=== PATIENT | male | born 1965 | race Caucasian/White ===

== ENCOUNTER → 2021-07-11 11:48 | Outpatient (BNVA) | payer MEDICAID, SELFPAY | PROVIDERS: Family Provider Nurse Practitioner Family; PCP Nurse Practitioner Family; Visit Provider Nurse Practitioner Family | DX: Z12.5 Encounter for screening for malignant neoplasm of prostate (principal); E55.9 Vitamin D deficiency, unspecified; E11.9 Type 2 diabetes mellitus without complications; Z13.6 Encounter for screening for cardiovascular disorders; R53.83 Other fatigue | CPT/HCPCS: 80053; 80061; 81003; 82306; 83036; 84443; 85025; G0103 ==

== ENCOUNTER → 2021-09-06 10:08 | Outpatient (BNVA) | payer MEDICAID, SELFPAY | PROVIDERS: Family Provider Nurse Practitioner Family; PCP Nurse Practitioner Family; Visit Provider Nurse Practitioner Family | DX: Z20.822 Contact with and (suspected) exposure to COVID-19 (principal) | CPT/HCPCS: 87635 ==

== ENCOUNTER → 2021-12-05 09:19 | Outpatient (BNVA) | payer MEDICAID, SELFPAY | PROVIDERS: Family Provider Nurse Practitioner Family; PCP Nurse Practitioner Family; Visit Provider Nurse Practitioner Family | DX: Z12.5 Encounter for screening for malignant neoplasm of prostate (principal); E11.69 Type 2 diabetes mellitus with other specified complication; E78.5 Hyperlipidemia, unspecified | CPT/HCPCS: 80053; 80061; 83036; 84443; 85025; G0103 ==

== ENCOUNTER → 2022-02-19 12:52 | Outpatient (BNVA) | payer MEDICAID, SELFPAY | PROVIDERS: Family Provider Nurse Practitioner Family; PCP Nurse Practitioner Family; Visit Provider Nurse Practitioner Family | DX: G89.29 Other chronic pain (principal); M54.2 Cervicalgia; M19.011 Primary osteoarthritis, right shoulder; M19.012 Primary osteoarthritis, left shoulder | CPT/HCPCS: 72040; 73030; 80053; 83036 ==

== ENCOUNTER 2022-04-28 12:06 | Emergency (ER) | payer MEDICAID, SELFPAY ==
[2022-04-28 12:24] VITALS: BP 109/82; PULSE 102; RESP 18; TEMP 36.2; O2SAT 97
[2022-04-28 13:41] LABS: Basophils % 0.4 %; Eosinophils % 0.1 %; Hematocrit 52.1 % (42.0-52.0); Hemoglobin 17.8 g/dL (11.7-16.6); Lymphocytes # 1.2 10^3/uL (0.8-4.8); Lymphocytes % 15.5 %; Mean Corpuscular HGB Conc 34.2 g/dL (30.0-36.0); Mean Corpuscular Hemoglobin 30.3 pg (28.0-34.0); Mean Corpuscular Volume 88.8 fl (80-94); Mean Platelet Volume 10.3 fL (7.4-10.4); Monocytes # 0.4 10^3/uL (0.2-0.9); Monocytes % 5.4 %; Neutrophils # 6.12 10^3/uL (1.8-7.7); Neutrophils % 78.2 %; Nucleated Red Blood Cells % 0 %; Platelet Count 192 10^3/cmm (130-400); Red Blood Count 5.87 10^6/uL (4.1-5.3); Red Cell Distribution Width 11.6 % (12.1-15.1); White Blood Count 7.8 10^3/uL (4.0-10.0)
--- NOTE | 2022-04-28 13:57 | ECG_ITS ---
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 Measurements Intervals [place] Rate: 88 P: 62 [place]: 188 QRS: 96 QRSD: 86 T: 40 QT: 360 QTc: 438 Interpretive Statements SINUS RHYTHM BORDERLINE RIGHT AXIS DEVIATION [QRS AXIS > 90] Compared to ECG 02/05/2018 15:56:26 Incomplete right bundle-branch block no longer present Electronically Signed On 04-28-2022 18:33:27 CDT by Walt Alexis M.D. [id number]
[2022-04-28 14:00] LABS: Alanine Aminotransferase 16 U/L (0-41); Alkaline Phosphatase 61 U/L (40-130); Anion Gap 17.8 (5-19); Aspartate Amino Transferase 15 U/L (0-40); Blood Urea Nitrogen 19 mg/dL (6-20); Calcium 10.6 mg/dL (8.5-10.5); Carbon Dioxide 32 mmol/L (22-29); Chloride 93 mmol/L (98-107); Globulin 2.7 g/dL (1.3-4.6); Glomerular Filtration Rate 87.9 mL/min (90-130); Glucose 219 mg/dL (65-115); Lipase 25 U/L (13-60); Osmolality Calculated 295 mOsm/kg (285-295); Potassium 4.8 mmol/L (3.5-5.1); Sodium 138 mmol/L (136-145); Total Bilirubin 1.5 mg/dL (0.15-1.2); Total Protein 7.7 g/dL (6.6-8.7)
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
[2022-04-28] MEDS: ondansetron 2 mg/ML SDV 2 mL 4 MG IVP (14:08)
[2022-04-28] MEDS: sodium chloride 0.9% 1,000 ML 999 ML IV (14:10)
[2022-04-28 14:22] VITALS: BP 129/83; PULSE 90; RESP 17; O2SAT 99
[2022-04-28 14:44] VITALS: PULSE 94; RESP 18; O2SAT 100
== END 2022-04-28 14:46 | disposition home or self-care (01) ==
PROVIDERS: Emergency Provider Emergency Medicine; PCP Nurse Practitioner Family
DX: R11.2 Nausea with vomiting, unspecified (principal); Z79.899 Other long term (current) drug therapy; Z79.84 Long term (current) use of oral hypoglycemic drugs; Z79.4 Long term (current) use of insulin; Z77.22 Contact with and (suspected) exposure to environmental tobacco smoke (acute) (chronic); E11.9 Type 2 diabetes mellitus without complications; E78.5 Hyperlipidemia, unspecified; Z87.891 Personal history of nicotine dependence
CPT/HCPCS: 80053; 83690; 85025; 93005; 96361; 96374; 99284; J2405; J7030

== ENCOUNTER 2022-07-11 14:13 | Inpatient (IN) | payer MEDICAID, SELFPAY ==
[2022-07-11 14:29] VITALS: BP 100/69; PULSE 96; RESP 14; TEMP 36.7; O2SAT 99; BMI 20.9
[2022-07-11 15:35] VITALS: BP 106/73; PULSE 87; O2SAT 94
--- NOTE | 2022-07-11 16:51 | CTR_ITS ---
PROCEDURE INFORMATION: Exam: CT Abdomen And Pelvis With Contrast Exam date and time: 07/11/2022 5:07 PM Age: 57 years old Clinical indication: Abdominal pain; Additional info: Abd and left flank pain TECHNIQUE: Imaging protocol: Computed tomography of the abdomen and pelvis with contrast. Radiation optimization: All CT scans at this facility use at least one of these dose optimization techniques: automated exposure control; mA and/or kV adjustment per patient size (includes targeted exams where dose is matched to clinical indication); or iterative reconstruction. Contrast material: OMNIPAQUE 350; Contrast volume: 100 ml; Contrast route: INTRAVENOUS (IV); COMPARISON: CR XR abdomen min 2V [id number] 11/17/2016 12:28 PM RADIATION DOSE METRICS: Total DLP (mGy-cm): 345.5 FINDINGS: Lungs: Emphysematous changes suspected. Liver: Normal. No mass. Gallbladder and bile ducts: Normal. No calcified stones. No ductal dilation. Pancreas: Normal. No ductal dilation. Spleen: Spleen enlarged at 13 cm. Adrenal glands: Normal. No mass. Kidneys and ureters: Normal. No hydronephrosis. Stomach and bowel: Prominent fluid in the small bowel without dilation suggestive of an enteritis. Appendix: No evidence of appendicitis. Intraperitoneal space: Unremarkable. No free air. No significant fluid collection. Vasculature: Unremarkable. No abdominal aortic aneurysm. Lymph nodes: Unremarkable. No enlarged lymph nodes. Urinary bladder: Unremarkable as visualized. Reproductive: Unremarkable as visualized. Bones/joints: Unremarkable. No acute fracture. Soft tissues: Unremarkable. CT/CT abdomen pelvis w con* [id number] IMPRESSION: 1. Prominent fluid in the small bowel without dilation suggestive of an enteritis. 2. Emphysematous changes suspected. 3. Spleen enlarged at 13 cm.
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
[2022-07-11] MEDS: iohexol 350 mg/mL 500 mL Btl (per mL) IV (17:09)
[2022-07-11] MEDS: sodium chloride 0.9% 1,000 ML 999 ML IV (17:23)
[2022-07-11 17:41] LABS: Specific Gravity, Urine 1.015 (1.005-1.030); Urine Appearance Clear (CLEAR); Urine Color Dark Yellow (Yellow); pH Urine 6 (5-7)
[2022-07-11 17:42] LABS: Add Urine Microscopic? YES; Bilirubin Urine 1+ (Negative); Blood Urine Trace (Negative); Glucose Urine UA 4+ (Normal); Ketones Urine 3+ (Negative); Leukocyte Esterase Urine Negative (Negative); Nitrate Urine Negative (Negative); Protein Urine 1+ (Negative); Urobilinogen Urine 8 mg/dL (Negative)
[2022-07-11 17:56] LABS: Amorphous Sediment Urine 1+ /hpf; Bacteria Urine TRACE /hpf; Squamous Epithelial Cell Urine 0-4 /hpf (0-5)
[2022-07-11 19:27] LABS: Basophils % 0.8 %; Hematocrit 43.5 % (42.0-52.0); Hemoglobin 15.4 g/dL (11.7-16.6); Lymphocytes # 0.3 10^3/uL (0.8-4.8); Lymphocytes % 22.1 %; Mean Corpuscular HGB Conc 35.4 g/dL (30.0-36.0); Mean Corpuscular Hemoglobin 30.1 pg (28.0-34.0); Mean Corpuscular Volume 85.1 fl (80-94); Mean Platelet Volume 12.6 fL (7.4-10.4); Monocytes # 0.2 10^3/uL (0.2-0.9); Monocytes % 12.2 %; Neutrophils % 64.1 %; Nucleated Red Blood Cells % 0 %; Platelet Count 48 10^3/cmm (130-400); Red Blood Count 5.11 10^6/uL (4.1-5.3); Red Cell Distribution Width 11.5 % (12.1-15.1); White Blood Count 1.3 10^3/uL (4.0-10.0)
[2022-07-11 19:47] LABS: Alanine Aminotransferase 292 U/L (0-41); Albumin Level 3.5 g/dL (3.5-5.2); Alkaline Phosphatase 460 U/L (40-130); Anion Gap 14.9 (5-19); Aspartate Amino Transferase 333 U/L (0-40); Blood Urea Nitrogen 15 mg/dL (6-20); Calcium 8.7 mg/dL (8.5-10.5); Carbon Dioxide 25 mmol/L (22-29); Chloride 96 mmol/L (98-107); Globulin 2.7 g/dL (1.3-4.6); Glomerular Filtration Rate 117.1 mL/min (90-130); Glucose 273 mg/dL (65-115); Lipase 165 U/L (13-60); Osmolality Calculated 285 mOsm/kg (285-295); Potassium 3.9 mmol/L (3.5-5.1); Sodium 132 mmol/L (136-145); Total Bilirubin 1.5 mg/dL (0.15-1.2); Total Protein 6.2 g/dL (6.6-8.7)
[2022-07-11 20:04] LABS: Neutrophils # 0.84 10^3/uL (1.8-7.7); Slide Review Slide Review Perform
--- NOTE | 2022-07-11 20:32 | USR_ITS ---
PROCEDURE INFORMATION: Exam: US Abdomen, Limited; Right Upper Quadrant Exam date and time: 07/11/2022 9:01 PM Age: 57 years old Clinical indication: Abdominal pain; Acute; Additional info: Tranaminitis and elev bili TECHNIQUE: Imaging protocol: Real time ultrasound of the abdomen with image documentation. Limited exam focused on the right upper quadrant. COMPARISON: CT abdomen pelvis w con* [id number] 07/11/2022 5:07 PM FINDINGS: Liver: Enlarged liver measuring 16.9 cm. No nodule. Gallbladder: Normal. No gallstones. There is no gallbladder wall thickening. Biliary ducts: Normal. No stones. No dilation. Pancreas: Visualized pancreas is unremarkable. Right kidney: Normal. No mass. No hydronephrosis. Intraperitoneal space: No ascites. US/US gall bladder [id number] IMPRESSION: No acute findings.
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
[2022-07-11 21:05] LABS: SARS Covid-2 Antigen negative (Negative)
[2022-07-11 21:07] LABS: Influenza A by IFA negative (Negative); Influenza B by IFA negative (Negative)
[2022-07-11 21:10] LABS: Hepatitis A Antibody IgM Non-Reactive (Nonreactive); Hepatitis B Core AB, Total Non-Reactive (Nonreactive); Hepatitis B Surface AB 3.5 (11.5-1000); Hepatitis B Surface Antigen Non-Reactive (Nonreactive); Hepatitis C Virus Antibody Non-Reactive (Nonreactive)
[2022-07-11] MEDS: doxycycline 100 MG in sodium chloride 0.9% (plus) 100 ML IV (21:40)
[2022-07-11 21:57] LABS: Procalcitonin 1.39 ng/mL (0-0.5)
[2022-07-11 22:40] VITALS: BP 107/63; PULSE 92; RESP 32; TEMP 36.8; O2SAT 96
[2022-07-11 23:38] LABS: Adenovirus Not Detected (NOT DETECT); Chlamydia Pneumoniae Not Detected (NOT DETECT); Coronavirus 229E,HKU1,NL63,OC4 Not Detected (NOT DETECT); Human Metapneumovirus Not Detected (NOT DETECT); Human Rhinovirus/Enterovirus Not Detected (NOT DETECT); Influenza A Not Detected (NOT DETECT); Influenza A H1 Not Detected (NOT DETECT); Influenza A H1-2009 Not Detected (NOT DETECT); Influenza A H3 Not Detected (NOT DETECT); Influenza B Not Detected (NOT DETECT); Mycoplasma Pneumoniae Not Detected (NOT DETECT); Parainfluenza Virus Type 1 Not Detected (NOT DETECT); Parainfluenza Virus Type 2 Not Detected (NOT DETECT); Parainfluenza Virus Type 3 Not Detected (NOT DETECT); Parainfluenza Virus Type 4 Not Detected (NOT DETECT); Respiratory Syncytial Virus A Not Detected (NOT DETECT); Respiratory Syncytial Virus B Not Detected (NOT DETECT); SARS-COV-2 Not Detected (NOT DETECT)
[2022-07-12] VITALS (10 sets, daily range): BP systolic 93–124; BP diastolic 60–72; PULSE 76–92; RESP 16–19; TEMP 36.8–37.4; O2SAT 94–98
[2022-07-12 00:03] LABS: D Dimer 2.04 ug/mIFEU (0-0.59)
[2022-07-12] MEDS: sodium chloride 0.9% 1,000 ML 75 ML IV ×2 (00:11→17:27)
[2022-07-12 00:13] LABS: Estmated Average Glucose 206; Hemoglobin A1C 8.8 % (4.0-6.0)
[2022-07-12 00:18] LABS: Thyroid Stimulating Hormone 1.74 uIU/mL (0.27-4.20)
[2022-07-12] MEDS: morphine IR 15 mg Tablet PO (00:18)
[2022-07-12 01:27] LABS: LAB Peripheral Smear Sent for Review
[2022-07-12 05:09] LABS: Basophils % 1.5 %; Hematocrit 42.3 % (42.0-52.0); Hemoglobin 14.2 g/dL (11.7-16.6); Lymphocytes # 0.6 10^3/uL (0.8-4.8); Lymphocytes % 29.9 %; Mean Corpuscular HGB Conc 33.6 g/dL (30.0-36.0); Mean Corpuscular Hemoglobin 29.6 pg (28.0-34.0); Mean Corpuscular Volume 88.3 fl (80-94); Mean Platelet Volume 11.8 fL (7.4-10.4); Monocytes # 0.3 10^3/uL (0.2-0.9); Monocytes % 15.2 %; Neutrophils # 1.06 10^3/uL (1.8-7.7); Neutrophils % 51.9 %; Nucleated Red Blood Cells % 0 %; Platelet Count 52 10^3/cmm (130-400); Red Blood Count 4.79 10^6/uL (4.1-5.3); Red Cell Distribution Width 11.6 % (12.1-15.1)
[2022-07-12 05:38] LABS: Alanine Aminotransferase 272 U/L (0-41); Albumin Level 2.9 g/dL (3.5-5.2); Alkaline Phosphatase 511 U/L (40-130); Anion Gap 12.4 (5-19); Aspartate Amino Transferase 272 U/L (0-40); Blood Urea Nitrogen 11 mg/dL (6-20); Calcium 8.5 mg/dL (8.5-10.5); Carbon Dioxide 23 mmol/L (22-29); Chloride 95 mmol/L (98-107); Globulin 2.7 g/dL (1.3-4.6); Glomerular Filtration Rate 117.1 mL/min (90-130); Glucose 250 mg/dL (65-115); Magnesium 1.6 mg/dL (1.7-2.3); Osmolality Calculated 272 mOsm/kg (285-295); Phosphorus 2.1 mg/dL (2.5-4.5); Potassium 3.4 mmol/L (3.5-5.1); Sodium 127 mmol/L (136-145); Total Bilirubin 1.1 mg/dL (0.15-1.2); Total Protein 5.6 g/dL (6.6-8.7)
[2022-07-12 05:43] LABS: Add RBC Morph Yes; RBC Morph Comp No
[2022-07-12 05:44] LABS: Giant Platelets Trace
[2022-07-12 06:20] LABS: Glucose Point of Care 247 mg/dL (70-110)
[2022-07-12] MEDS: cefTRIAXone 1,000 MG in sodium chloride 0.9% (plus) 50 ML 100 MG IV (09:18)
[2022-07-12] MEDS: doxycycline 100 mg Tablet PO ×2 (09:18→21:19)
[2022-07-12] MEDS: insulin lispro 100 unit/1 mL SUBCUT ×2 (09:19→12:22)
--- NOTE | 2022-07-12 09:33 | USR_ITS ---
PROCEDURE INFORMATION: Exam: US Abdomen; Limited Exam date and time: 07/12/2022 6:49 PM Age: 57 years old Clinical indication: Abnormal findings; Abnormal radiologic finding of the abdomen; Radiologic exam and body structure: CT; Additional info: Spleen TECHNIQUE: Imaging protocol: Real time ultrasound of the abdomen with image documentation. Limited exam focused on the region of clinical interest. COMPARISON: US gall bladder [id number] 07/11/2022 9:01 PM FINDINGS: Pleural spaces: Possible small left pleural effusion. Left kidney: Left renal length 12 cm. Normal morphology. Negative for hydronephrosis. Spleen: Spleen measures 13.6 cm longitudinal by 6.5 cm AP by 10.1 cm transverse. No focal mass. Normal contour. Unremarkable echotexture. Intraperitoneal space: No abdominal fluid collection. US/US abdomen limited [id number] IMPRESSION: Mild severity splenomegaly.
[2022-07-12 10:35] LABS: Erythrocyte Sedimentation Rate 5 mm/hr (0-10)
[2022-07-12 10:38] LABS: Monoscreen Negative (Negative)
[2022-07-12 10:55] LABS: INR 1.02 (0.8-1.2)
[2022-07-12 10:56] LABS: Partial Thromboplastin Time 31.9 SECONDS (23.9-36.7)
[2022-07-12 10:57] LABS: Fibrinogen 421 mg/dL (174-498)
[2022-07-12 11:01] LABS: HIV 1 & 2 Antibody Non-Reactive (Non-Reactiv); HIV 1 & 2 Antigen Non-Reactive (Non-Reactiv)
[2022-07-12 11:09] LABS: Glucose Point of Care 327 mg/dL (70-110)
[2022-07-12] MEDS: insulin glargine 100 units/1 mL 50 UNIT SUBCUT (12:22)
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
[2022-07-12 16:58] LABS: Rapid Plasma Reagin Syphilis Nonreactive (Nonreactive)
[2022-07-12 17:07] LABS: Glucose Point of Care 108 mg/dL (70-110)
[2022-07-12] MEDS: azithromycin 500 MG in sodium chloride 0.9% 250 ML 250 MG IV (17:28)
[2022-07-12] MEDS: ondansetron 2 mg/ML SDV 2 mL 4 MG IVP (19:23)
[2022-07-12] MEDS: morphine 4 mg/mL SDV 1 mL 1 MG IVP (19:29)
--- NOTE | 2022-07-12 19:47 | PC.NURSE ---
Pt c/o nausea, spit out small amount of clear thick sputum. Zofran administered for c/o nausea. Also c/o bilateral shoulder pain, PRN morphine administered per orders.
[2022-07-12 20:46] LABS: Glucose Point of Care 142 mg/dL (70-110)
[2022-07-13] VITALS (11 sets, daily range): BP systolic 102–132; BP diastolic 62–78; PULSE 72–82; RESP 15–18; TEMP 36.5–37.3; O2SAT 94–98
[2022-07-13] MEDS: ondansetron 2 mg/ML SDV 2 mL 4 MG IVP (01:33)
[2022-07-13] MEDS: morphine 4 mg/mL SDV 1 mL 1 MG IVP ×2 (01:33→05:34)
[2022-07-13 05:17] LABS: Eosinophils % 0.3 %; Hematocrit 40.1 % (42.0-52.0); Hemoglobin 13.8 g/dL (11.7-16.6); Lymphocytes # 1.3 10^3/uL (0.8-4.8); Lymphocytes % 41.6 %; Mean Corpuscular HGB Conc 34.4 g/dL (30.0-36.0); Mean Corpuscular Hemoglobin 29.9 pg (28.0-34.0); Mean Corpuscular Volume 86.8 fl (80-94); Mean Platelet Volume 12.3 fL (7.4-10.4); Monocytes # 0.3 10^3/uL (0.2-0.9); Monocytes % 8.2 %; Neutrophils # 1.45 10^3/uL (1.8-7.7); Neutrophils % 47.6 %; Nucleated Red Blood Cells % 0 %; Platelet Count 57 10^3/cmm (130-400); Red Blood Count 4.62 10^6/uL (4.1-5.3); Red Cell Distribution Width 11.8 % (12.1-15.1); White Blood Count 3.1 10^3/uL (4.0-10.0)
[2022-07-13] MEDS: sodium chloride 0.9% 1,000 ML 75 ML IV ×2 (05:35→22:13)
[2022-07-13 05:42] LABS: Alanine Aminotransferase 214 U/L (0-41); Albumin Level 2.6 g/dL (3.5-5.2); Alkaline Phosphatase 484 U/L (40-130); Aspartate Amino Transferase 160 U/L (0-40); Blood Urea Nitrogen 12 mg/dL (6-20); C Reactive Protein 45.7 mg/L (0.0-4.9); Calcium 8.1 mg/dL (8.5-10.5); Carbon Dioxide 25 mmol/L (22-29); Chloride 98 mmol/L (98-107); Globulin 2.4 g/dL (1.3-4.6); Glomerular Filtration Rate 139.9 mL/min (90-130); Glucose 147 mg/dL (65-115); Magnesium 1.8 mg/dL (1.7-2.3); Osmolality Calculated 274 mOsm/kg (285-295); Phosphorus 1.8 mg/dL (2.5-4.5); Sodium 131 mmol/L (136-145); Total Bilirubin 0.7 mg/dL (0.15-1.2)
[2022-07-13 05:43] LABS: Anion Gap 11.4 (5-19); Potassium 3.4 mmol/L (3.5-5.1)
[2022-07-13 05:47] LABS: Procalcitonin 0.85 ng/mL (0-0.5)
--- NOTE | 2022-07-13 05:55 | PC.NURSE ---
Pt K+ level this am 2.1 w/previous result 2.6. Referred to physician for review. Awaiting orders.
[2022-07-13 06:16] LABS: Slide Review Slide Review Perform
[2022-07-13 06:31] LABS: Glucose Point of Care 172 mg/dL (70-110)
[2022-07-13] MEDS: doxycycline 100 mg Tablet PO ×2 (10:29→21:25)
[2022-07-13] MEDS: azithromycin 250 mg Tablet PO (10:29)
[2022-07-13] MEDS: cefTRIAXone 1,000 MG in sodium chloride 0.9% (plus) 50 ML 100 MG IV (10:30)
[2022-07-13 11:17] LABS: Glucose Point of Care 438 mg/dL (70-110)
[2022-07-13] MEDS: insulin glargine 100 units/1 mL 50 UNIT SUBCUT (12:16)
[2022-07-13] MEDS: insulin lispro 100 unit/1 mL SUBCUT ×2 (12:16→17:51)
--- NOTE | 2022-07-13 13:22 | PM.PN ---
Subjective Subjective: Patient was seen this morning, he tells me he feels a lot better, no fevers, no chills, no nausea, no vomiting Vitals/I&O/Wt Last Vital Signs Temp 98.5 F 07/13/22 11:41 Pulse 74 07/13/22 11:41 Resp 17 07/13/22 11:41 BP 127/65 07/13/22 11:41 Pulse Ox 98 07/13/22 11:41 O2 Del Method 07/13/22 11:41 07/12/22 07/13/22 07/13/22 22:59 06:59 14:59 Intake Total 2019 1570 / 3590 480 / 480 Output Total Balance 2019 1550 / 3570 480 / 480 Weight last 48 hrs Weight 58.967 kg Physical Exam Const: COMMON NORMALS: no acute distress and patient oriented x3 Resp: COMMON NORMALS: normal respiratory effort, No retractions, No use of accessory muscles and clear to auscultation bilaterally AUSCULTATION: clear to auscultation bilaterally Cardio: COMMON NORMALS: regular rate, regular rhythm, S1 normal heart sound present and S2 normal heart sound present RATE: regular rate RHYTHM: regular rhythm HEART SOUNDS: S1 normal heart sound present and S2 normal heart sound present GI: COMMON NORMALS: Normal to inspection, nondistended, normoactive bowel sounds present and non-tender Extremity: COMMON NORMALS: no pedal edema Neuro: COMMON NORMALS: patient oriented x3 Psych: COMMON NORMALS: mental status grossly normal Data 07/13/22 04:34 07/13/22 04:34 Micro: Microbiology 07/12/22 10:01 Blood Culture - Preliminary Blood NEGATIVE TO DATE 07/12/22 09:57 Blood Culture - Preliminary Blood NEGATIVE TO DATE 07/12/22 21:25 Gram Stain - Final Sputum - Expectorated Sputum A&P Assessment and plan (1) Colitis: (2) Leukopenia: (3) Transaminitis: (4) Fatigue: Qualifiers: Fatigue type: unspecified Qualified Code(s): R53.83 - Other fatigue (5) Thrombocytopenia: (6) Hepatosplenomegaly: (7) DM II (diabetes mellitus, type II), controlled: Qualifiers: Diabetes mellitus intermediate insulin use: without intermodal customer service use Diabetes mellitus complication status: without complication Qualified Code(s): E11.9 - Type 2 diabetes mellitus without complications Plan Generalized fatigue Abnormal transaminases Leukopenia and thrombocytopenia Hepatosplenomegaly Hyponatremia serum sodium 127 CRP 92, Pro-Roverto 1.39 CT scan showing enteritis, splenic enlargement Possible cat scratch disease, No tick bite I will give him ceftriaxone and doxycycline Add azithromycin for cat scratch disease CMV, HIV, acute hep, Bartonella antigen, PCR, EBV If there are no reversible causes for his abnormal blood chemistry then he might need hematology consult, peripheral smear studies No active signs of sepsis No active bleeding Patient is a former smoker Check stool studies, blood cultures, sputum cultures [place] diet Full code DVT prophylaxis Lovenox for DVT prophylaxis Attestations Medical Necessity Statement*: Patient requires hospitalization for possible cat scratch disease Coding Level of Care Code Acute Computer Systems Integrator for [facility] Fwd Diagnoses Colitis K52.9 Leukopenia D72.819 Transaminitis R74.01 Fatigue R53.83 Fatigue type: unspecified Thrombocytopenia D69.6 Hepatosplenomegaly R16.2 DM II (diabetes mellitus, type II), controlled E11.9 Diabetes mellitus intermediate insulin use: without intermediate use Diabetes mellitus complication status: without complication
[2022-07-13] MEDS: acetaminophen 500 mg Tablet PO ×3 (14:54→23:49)
[2022-07-13] MEDS: polyethylene glycol 3350 Pkt 17 gm PO (14:55)
[2022-07-13 17:13] LABS: Glucose Point of Care 203 mg/dL (70-110)
[2022-07-13 21:03] LABS: Glucose Point of Care 64 mg/dL (70-110)
[2022-07-13 21:37] LABS: Glucose Point of Care 94 mg/dL (70-110)
[2022-07-14] VITALS (7 sets, daily range): BP systolic 112–144; BP diastolic 69–88; PULSE 66–82; RESP 16–17; TEMP 36.3–36.9; O2SAT 91–98
[2022-07-14 03:39] LABS: Glucose Point of Care 70 mg/dL (70-110)
--- NOTE | 2022-07-14 03:43 | PC.NURSE ---
AXEL Pt thought he felt like his blood sugar was low. Was 70 with accernie. Given some orange juice to drink
[2022-07-14] MEDS: acetaminophen 500 mg Tablet PO ×2 (04:09→19:20)
[2022-07-14 05:48] LABS: Hematocrit 38.1 % (42.0-52.0); Hemoglobin 13.4 g/dL (11.7-16.6); Mean Corpuscular HGB Conc 35.2 g/dL (30.0-36.0); Mean Corpuscular Volume 85.2 fl (80-94); Mean Platelet Volume 12.2 fL (7.4-10.4); Platelet Count 81 10^3/cmm (130-400); Red Blood Count 4.47 10^6/uL (4.1-5.3); Red Cell Distribution Width 11.8 % (12.1-15.1)
[2022-07-14 06:11] LABS: Alanine Aminotransferase 169 U/L (0-41); Albumin Level 2.8 g/dL (3.5-5.2); Alkaline Phosphatase 452 U/L (40-130); Anion Gap 12.2 (5-19); Aspartate Amino Transferase 104 U/L (0-40); Blood Urea Nitrogen 10 mg/dL (6-20); C Reactive Protein 22.4 mg/L (0.0-4.9); Calcium 8.3 mg/dL (8.5-10.5); Carbon Dioxide 26 mmol/L (22-29); Chloride 102 mmol/L (98-107); Globulin 2.2 g/dL (1.3-4.6); Glomerular Filtration Rate 117.1 mL/min (90-130); Glucose 129 mg/dL (65-115); Magnesium 1.9 mg/dL (1.7-2.3); Osmolality Calculated 285 mOsm/kg (285-295); Phosphorus 1.9 mg/dL (2.5-4.5); Potassium 3.2 mmol/L (3.5-5.1); Sodium 137 mmol/L (136-145); Total Bilirubin 0.5 mg/dL (0.15-1.2)
[2022-07-14 06:14] LABS: Procalcitonin 0.48 ng/mL (0-0.5)
[2022-07-14 06:47] LABS: Glucose Point of Care 121 mg/dL (70-110)
[2022-07-14 07:49] LABS: Absolute Segmented Neutrophil 2.7 10/cmm (1.6-7.1); Band Neutrophils Absolute 0.1 10^3/cmm (0.0-1.2); Segmented Neutrophils 53 %; Slide Review Slide Review Perform; Total Cells Counted 100 (0-100)
[2022-07-14 07:50] LABS: Eosinophils 1 %; Monocytes Absolute 0.3 10^3/cmm (0.1-0.6)
[2022-07-14 07:52] LABS: Absolute Neutrophil 2.7 10^3/cmm (1.4-6.5); Lymphocytes 35 %; Platelet Estimate Decreased (Normal)
[2022-07-14] MEDS: azithromycin 250 mg Tablet PO (08:49)
[2022-07-14] MEDS: doxycycline 100 mg Tablet PO (08:49)
[2022-07-14] MEDS: potassium chloride ER 20 mEq Tablet 40 MEQ PO (08:49)
[2022-07-14] MEDS: phosphorus 250 mg Tablet PO ×2 (08:49→18:06)
[2022-07-14] MEDS: cefTRIAXone 1,000 MG in sodium chloride 0.9% (plus) 50 ML 100 MG IV (08:49)
--- NOTE | 2022-07-14 10:26 | PM.PN ---
Subjective Subjective: Patient reports that he feels terrible. States he has not had a bowel movement in 8 days. Abdomen feels distended. Endorses generalized malaise and fatigue. Endorses poor oral intake. Endorses chronic chills. Denies fevers, emesis, or focal weakness. Medications: Reviewed: Yes Vitals/I&O/Wt Last Vital Signs Temp 98.0 F 07/14/22 08:00 Pulse 70 07/14/22 08:00 Resp 16 07/14/22 08:00 BP 112/69 07/14/22 08:00 Pulse Ox 91 07/14/22 08:00 O2 Del Method 07/14/22 08:00 07/13/22 07/14/22 07/14/22 22:59 06:59 14:59 Intake Total 1720 / 2680 240 / 2920 290 / 290 Output Total 350 / 1000 1000 / 2000 Balance 1370 / 1680 -760 / 920 290 / 290 Physical Exam Narrative: General: Patient is awake. Ill appearing. Head: Normocephalic. Atraumatic. EOM intact. Neck: No JVD. Cardiovascular: RRR. No gallops. No murmurs. No peripheral edema. Lungs: Clear to auscultation, no use of accessory muscles, no crackles or wheezes. Skin: No jaundice. No rashes. Abdomen: Normal bowel sounds, slightly distended. Bowel sounds are present. Genito Urinary: Genital exam not performed since complaints not related. Rectal: Rectal exam not performed since no symptoms indicated blood loss. Extremities: No cyanosis or clubbing. Musculoskeletal: No swollen or erythematous joints. Neurological: Moves all 4 extremities. No myoclonus. Data 07/14/22 04:03 07/14/22 04:03 Micro: Microbiology 07/12/22 10:01 Blood Culture - Preliminary Blood NEGATIVE TO DATE 07/12/22 09:57 Blood Culture - Preliminary Blood NEGATIVE TO DATE 07/12/22 21:25 Gram Stain - Final Sputum - Expectorated Sputum A&P Assessment and plan (1) Colitis: CT imaging reviewed Suspect cat scratch disease Continue bland diet Continue ceftriaxone Continue azithromycin Discontinue doxycycline Discontinue IV fluids Encourage oral intake Follow-up viral serologies (2) Hepatosplenomegaly: Secondary to viral infection Continue supportive care Continue antibiotics (3) Thrombocytopenia: Secondary to viral infection Management as above (4) Leukopenia: Secondary to viral infection Management as above (5) Transaminitis: Secondary to viral infection Management as above (6) Constipation: Start senna Start MiraLAX (7) Fatigue: Secondary to infection Continue supportive care Qualifiers: Fatigue type: unspecified Qualified Code(s): R53.83 - Other fatigue (8) Debility: Associated with physical deconditioning Continue supportive care Treat underlying infection (9) Hyperlipidemia associated with type 2 diabetes mellitus: Not on pharmacological treatment (10) DM II (diabetes mellitus, type II), controlled: Continue Lantus Sliding scale insulin correction Avoid hypoglycemia Qualifiers: Diabetes mellitus longwall shearer operator insulin use: without longwall shearer operator use Diabetes mellitus complication status: without complication Qualified Code(s): E11.9 - Type 2 diabetes mellitus without complications (11) Hypokalemia: Replace potassium Telemetry monitoring (12) Hypophosphatemia: Replace phosphorus Plan DVT prophylaxis: SCDs CODE STATUS: Full code Attestations Medical Necessity Statement*: Patient remains markedly symptomatic secondary to infection requiring ongoing hospitalization for medical care, IV antibiotics, correction of electrolytes, telemetry monitoring, and serial labs. Coding Level of Care Code Acute Retail Salesworker for [facility] Fwd Diagnoses Colitis K52.9 Hepatosplenomegaly R16.2 Thrombocytopenia D69.6 Leukopenia D72.819 Transaminitis R74.01 Constipation K59.00 Fatigue R53.83 Fatigue type: unspecified Debility R53.81 Hyperlipidemia associated with type 2 diabetes mellitus E11.69; E78.5 DM II (diabetes mellitus, type II), controlled E11.9 Diabetes mellitus prison insulin use: without prison use Diabetes mellitus complication status: without complication Hypokalemia E87.6 Hypophosphatemia E83.39
--- NOTE | 2022-07-14 10:48 | PC.NURSE ---
held pts, will, dr mullins
--- NOTE | 2022-07-14 11:41 | PC.CHAP ---
Pastoral Care Encounter/Spiritual Assessment Type of Contact [] Declined document photographer visit [] Patient/Family/Request visit [] Outpatient visit [] Follow-up visit [] Physician referral [] Code/Alert [x] Routine visit [] Staff referral [] Actively dying [] Patient sleeping [] Family support [] [] Out of room [] Palliative care [] [] Receiving care in room [] Pre-surgical visit [] Trauma [] Long length of stay [] ICU visit [] Other: Relational/Emotional Strength [x] Patient feels connected with others/family/visitors/staff [] Distress [] Loneliness/isolation [] Abandonment Spirituality of Patient []x Person of Rhoda [] Attends Spiritism of their Rhoda [x] Believes in Prayer [] Reads Bible or Jew materials [] There are Spiritual issues to be addressed Electric Motor Repairman Interventions [x] Prayer [x] Active listening [] Non-anxious presence [] Spiritual/emotional support [] Crisis/trauma care [] Spiritual counseling [] Bereavement support [] Provided bereavement packet [] Provided Bible/devotional materials [] Provided toy/stuffed animal, coloring book to patient or family member [] Provided Communion [] Anointing/[place] [] Salvationx [x] Completed spiritual assessment [] Other: Impact on Illness or Injury [] Angry [] Fearful [] Anxious [] Often cries [] Exhaustion [] Unable to work [] Unable to attend samaritan [] Unable to walk/stand [] Unable to read [] Unable to drive [] Unable to eat/drink [] Unable to sleep [] Unable to be with family [] Patient intubated [] Other: Summary Time spent with patient 10 min
[2022-07-14 11:45] LABS: COMPLEMENT COMPONENT C3C 148 mg/dL (82-185); COMPLEMENT COMPONENT C4C 22 mg/dL (15-53)
[2022-07-14 12:00] LABS: Glucose Point of Care 199 mg/dL (70-110)
[2022-07-14 14:34] LABS: CENTROMERE B ANTIBODY <1.0 NEG AI (<1.0 NEG); JO-1 ANTIBODY <1.0 NEG AI (<1.0 NEG); RNP ANTIBODY <1.0 NEG AI (<1.0 NEG); SCL-70 ANTIBODY <1.0 NEG AI (<1.0 NEG); SJOGREN'S ANTIBODY (SS-A) <1.0 NEG AI (<1.0 NEG); SM ANTIBODY <1.0 NEG AI (<1.0 NEG); SS-B <1.0 NEG AI (<1.0 NEG)
[2022-07-14 14:50] LABS: COMPLEMENT, TOTAL (CH50) >60 U/mL (31-60)
[2022-07-14 15:06] LABS: EBV IGG TEST <18.00 U/mL; EBV IGM TEST <36.00 U/mL; EBV Viral Capsid AB IGM <36.00 U/mL
[2022-07-14 15:06] LABS: Lyme AB Screen <0.90 index
[2022-07-14 15:35] LABS: Cytomegalovirus Antibody (IGG) >10.00 U/mL; Cytomegalovirus Antibody (IGM) <30.00 AU/mL
[2022-07-14 16:47] LABS: Glucose Point of Care 265 mg/dL (70-110)
[2022-07-14] MEDS: polyethylene glycol 3350 Pkt 17 gm PO (18:06)
[2022-07-14] MEDS: sennosides 8.6 mg Tablet 17.2 MG PO (18:06)
[2022-07-14] MEDS: insulin lispro 100 unit/1 mL SUBCUT (18:09)
[2022-07-14 19:57] LABS: Glucose Point of Care 233 mg/dL (70-110)
[2022-07-15] VITALS: BP 108/71; PULSE 57; RESP 17; TEMP 37; O2SAT 96
[2022-07-15 04:00] VITALS: BP 108/71; PULSE 66; RESP 17; TEMP 36.6; O2SAT 96
[2022-07-15 04:59] LABS: Basophils % 0.4 %; Eosinophils % 0.8 %; Hematocrit 38.2 % (42.0-52.0); Hemoglobin 13.3 g/dL (11.7-16.6); Lymphocytes # 2.6 10^3/uL (0.8-4.8); Lymphocytes % 51.4 %; Mean Corpuscular HGB Conc 34.8 g/dL (30.0-36.0); Mean Corpuscular Hemoglobin 30.1 pg (28.0-34.0); Mean Corpuscular Volume 86.4 fl (80-94); Mean Platelet Volume 11.7 fL (7.4-10.4); Monocytes # 0.6 10^3/uL (0.2-0.9); Monocytes % 12.2 %; Neutrophils # 1.74 10^3/uL (1.8-7.7); Neutrophils % 34.2 %; Nucleated Red Blood Cells % 0 %; Platelet Count 111 10^3/cmm (130-400); Red Blood Count 4.42 10^6/uL (4.1-5.3); Red Cell Distribution Width 11.9 % (12.1-15.1); White Blood Count 5.1 10^3/uL (4.0-10.0)
[2022-07-15 05:21] LABS: Alanine Aminotransferase 130 U/L (0-41); Albumin Level 2.8 g/dL (3.5-5.2); Alkaline Phosphatase 393 U/L (40-130); Anion Gap 10.4 (5-19); Aspartate Amino Transferase 59 U/L (0-40); Blood Urea Nitrogen 9 mg/dL (6-20); Calcium 8.6 mg/dL (8.5-10.5); Carbon Dioxide 29 mmol/L (22-29); Chloride 100 mmol/L (98-107); Globulin 2.3 g/dL (1.3-4.6); Glomerular Filtration Rate 117.1 mL/min (90-130); Glucose 116 mg/dL (65-115); Magnesium 1.9 mg/dL (1.7-2.3); Osmolality Calculated 282 mOsm/kg (285-295); Phosphorus 4.2 mg/dL (2.5-4.5); Potassium 3.4 mmol/L (3.5-5.1); Sodium 136 mmol/L (136-145); Total Bilirubin 0.4 mg/dL (0.15-1.2); Total Protein 5.1 g/dL (6.6-8.7)
[2022-07-15 05:37] VITALS: PULSE 56
[2022-07-15 06:33] LABS: Glucose Point of Care 120 mg/dL (70-110)
[2022-07-15] MEDS: polyethylene glycol 3350 Pkt 17 gm PO (09:05)
[2022-07-15] MEDS: lactulose oral liq 20 gm/30 mL UDC PO (09:05)
[2022-07-15] MEDS: sennosides 8.6 mg Tablet 17.2 MG PO ×2 (09:07→17:51)
[2022-07-15] MEDS: phosphorus 250 mg Tablet PO ×2 (09:07→17:51)
[2022-07-15] MEDS: azithromycin 250 mg Tablet PO (09:07)
[2022-07-15] MEDS: cefTRIAXone 1,000 MG in sodium chloride 0.9% (plus) 50 ML 100 MG IV (09:10)
--- NOTE | 2022-07-15 10:41 | P.PN_ITS ---
Subjective Subjective: Patient endorses generalized malaise and fatigue. Reports minimal is 10 days since a bowel movement. Passing gas. Reports he feels terrible overall. Denies fevers, nausea or emesis. Endorses chills. Medications: Reviewed: Yes Vitals/I&O/Wt Last Vital Signs Temp 98 F 07/15/22 04:00 Pulse 56 L 07/15/22 05:37 Resp 17 07/15/22 04:00 BP 108/71 07/15/22 04:00 Pulse Ox 96 07/15/22 04:00 O2 Del Method 07/14/22 16:00 07/14/22 07/15/22 07/15/22 22:59 06:59 14:59 Intake Total 1455 / 2035 240 / 2275 480 / 480 Balance 1455 / 2035 240 / 2275 480 / 480 Physical Exam Narrative: General: Patient is awake. Appears ill. Head: Normocephalic. Atraumatic. EOMI. Neck: No JVD. Cardiovascular: RRR. No gallops. No murmurs. No peripheral edema. Lungs: Clear to auscultation, no use of accessory muscles, no crackles or wheezes. Skin: No jaundice. No rashes. Abdomen: Normal bowel sounds, slightly distended. Bowel sounds are present. Genito Urinary: Genital exam not performed since complaints not related. Rectal: Rectal exam not performed since no symptoms indicated blood loss. Extremities: No cyanosis or clubbing. Musculoskeletal: No swollen or erythematous joints. Neurological: Moves all 4 extremities. No myoclonus. Data 07/15/22 04:11 07/15/22 04:11 Micro: Microbiology 07/13/22 19:19 Chlamydia trachomatis ([facility]) - Final Urine Random Neisseria gonorrhoeae ([facility]) - Final 07/12/22 21:25 Gram Stain - Final Sputum - Expectorated Sputum Sputum Culture - Preliminary 07/12/22 14:01 Urine Culture - Final Urine,Voided A&P Assessment and plan (1) Colitis: Suspect cat scratch disease Continue bland diet Continue ceftriaxone Continue azithromycin Encourage oral intake Follow-up viral serologies (2) Hepatosplenomegaly: Secondary to viral infection Continue supportive care Continue antibiotics (3) Thrombocytopenia: Secondary to viral infection Management as above (4) Leukopenia: Secondary to viral infection Management as above (5) Transaminitis: Secondary to viral infection Management as above (6) Constipation: Continue senna Continue MiraLAX Lactulose ordered (7) Fatigue: Secondary to infection Continue supportive care Qualifiers: Fatigue type: unspecified Qualified Code(s): R53.83 - Other fatigue (8) Debility: Associated with physical deconditioning Continue supportive care Treat underlying infection (9) Hyperlipidemia associated with type 2 diabetes mellitus: Not on pharmacological treatment (10) DM II (diabetes mellitus, type II), controlled: Continue Lantus Sliding scale insulin correction Avoid hypoglycemia Qualifiers: Diabetes mellitus intermediate frame tender insulin use: without intermediate frame tender use Diabetes mellitus complication status: without complication Qualified Code(s): E11.9 - Type 2 diabetes mellitus without complications (11) Hypokalemia: Replace potassium Telemetry monitoring (12) Hypophosphatemia: Replace phosphorus Plan DVT prophylaxis: SCDs CODE STATUS: Full code Attestations Medical Necessity Statement*: Patient requires ongoing hospitalization for IV antibiotics, electrolyte monitoring and replacement, telemetry monitoring, management bowels, and supportive care. Coding Level of Care Code Acute Sociology Faculty Member for [facility] Fwd Diagnoses Colitis K52.9 Hepatosplenomegaly R16.2 Thrombocytopenia D69.6 Leukopenia D72.819 Transaminitis R74.01 Constipation K59.00 Fatigue R53.83 Fatigue type: unspecified Debility R53.81 Hyperlipidemia associated with type 2 diabetes mellitus E11.69; E78.5 DM II (diabetes mellitus, type II), controlled E11.9 Diabetes mellitus intermediate frame tender insulin use: without intermediate frame tender use Diabetes mellitus complication status: without complication Hypokalemia E87.6 Hypophosphatemia E83.39
[2022-07-15] MEDS: potassium chloride ER 20 mEq Tablet PO (12:17)
[2022-07-15 12:46] LABS: Glucose Point of Care 266 mg/dL (70-110)
[2022-07-15] MEDS: insulin lispro 100 unit/1 mL SUBCUT ×2 (14:38→17:51)
[2022-07-15 15:11] VITALS: BP 114/74; PULSE 69; RESP 16; TEMP 36.7; O2SAT 98
[2022-07-15 17:06] LABS: Glucose Point of Care 330 mg/dL (70-110)
[2022-07-15 20:00] VITALS: BP 122/76; PULSE 75; RESP 16; TEMP 36.7; O2SAT 96
[2022-07-15 20:57] LABS: Glucose Point of Care 119 mg/dL (70-110)
[2022-07-15] MEDS: acetaminophen 500 mg Tablet PO (22:25)
[2022-07-15 23:01] VITALS: PULSE 61
[2022-07-16] VITALS: BP 120/75; PULSE 57; RESP 16; TEMP 36.6; O2SAT 98
[2022-07-16 02:04] LABS: Basophils % 0.5 %; Eosinophils % 0.9 %; Hematocrit 38.3 % (42.0-52.0); Hemoglobin 13.2 g/dL (11.7-16.6); Lymphocytes # 2.2 10^3/uL (0.8-4.8); Lymphocytes % 50.1 %; Mean Corpuscular HGB Conc 34.5 g/dL (30.0-36.0); Mean Corpuscular Hemoglobin 30.1 pg (28.0-34.0); Mean Corpuscular Volume 87.2 fl (80-94); Mean Platelet Volume 11.1 fL (7.4-10.4); Monocytes # 0.6 10^3/uL (0.2-0.9); Monocytes % 13.8 %; Neutrophils # 1.42 10^3/uL (1.8-7.7); Neutrophils % 33.1 %; Nucleated Red Blood Cells % 0 %; Platelet Count 137 10^3/cmm (130-400); Red Blood Count 4.39 10^6/uL (4.1-5.3); White Blood Count 4.3 10^3/uL (4.0-10.0)
[2022-07-16 03:54] VITALS: BP 133/81; PULSE 60; RESP 16; TEMP 36.7; O2SAT 95
[2022-07-16 05:13] VITALS: PULSE 59
[2022-07-16 07:05] LABS: Glucose Point of Care 162 mg/dL (70-110)
--- NOTE | 2022-07-16 07:40 | PC.NURSE ---
This nurse is assuming care of patient, patient is resting quietly in bed, easily aroused and oriented, no c/o pain or discomfort at this time. No current needs, room clean and clutter free with call light in reach. Will continue to monitor.
[2022-07-16 08:00] VITALS: BP 148/83; PULSE 66; RESP 17; TEMP 36.4; O2SAT 98
[2022-07-16] MEDS: cefTRIAXone 1,000 MG in sodium chloride 0.9% (plus) 50 ML 100 MG IV (08:21)
[2022-07-16] MEDS: sennosides 8.6 mg Tablet 17.2 MG PO (08:23)
[2022-07-16] MEDS: azithromycin 250 mg Tablet PO (08:23)
[2022-07-16] MEDS: insulin lispro 100 unit/1 mL SUBCUT ×2 (08:23→12:38)
[2022-07-16] MEDS: polyethylene glycol 3350 Pkt 17 gm PO (08:23)
[2022-07-16] MEDS: phosphorus 250 mg Tablet PO (08:23)
[2022-07-16] MEDS: insulin glargine 100 units/1 mL 50 UNIT SUBCUT (08:27)
--- NOTE | 2022-07-16 09:25 | PM.DCS ---
Discharge Providers Date of Admission: 07/12/22 15:58 Date of Discharge: July 16, 2022 Attending Provider at Admission: Jose Sin MD Attending Provider at Discharge: Mohinder Terrazas MD Consults: None Primary Care Provider: DIONNE Nance Diagnoses at Discharge Discharge Diagnosis (1) Colitis: Status: Acute (2) Hepatosplenomegaly: Status: Acute (3) Thrombocytopenia: Status: Acute (4) Leukopenia: Status: Acute (5) Transaminitis: Status: Acute (6) Constipation: Status: Acute (7) Fatigue: Status: Acute Qualifiers: Fatigue type: unspecified Qualified Code(s): R53.83 - Other fatigue (8) Debility: Status: Acute (9) Hyperlipidemia associated with type 2 diabetes mellitus: Status: Acute (10) DM II (diabetes mellitus, type II), controlled: Status: Acute Qualifiers: Diabetes mellitus computer terminal operator insulin use: without computer terminal operator use Diabetes mellitus complication status: without complication Qualified Code(s): E11.9 - Type 2 diabetes mellitus without complications (11) Hypokalemia: Status: Acute (12) Hypophosphatemia: Status: Acute Reason for Visit Reason for Visit: Left flank pain Hospital Course Hospital Course Mohinder Maradiaga is a 57-year-old male with a past medical history significant for hyperlipidemia, hypertension and diabetes mellitus who presented with left flank pain, found to have enteritis, leukopenia, thrombocytopenia, transaminitis, and hepatomegaly. He was found to have suspected cat scratch disease. At discharge there are several pending viral serologies. Cultures remain negative. He was treated with broad spectrum antibiotics. At discharge he was transitioned to cefdinir and azithromycin. Hospital course was complicated by constipation which resolved with bowel regimen. He is to follow up with his primary care provider within one week for further management. Physical Exam Narrative: General: Patient is awake and alert. Head: Normocephalic. Atraumatic. EOM intact. Neck: No JVD. Cardiovascular: RRR. No gallops. No murmurs. No peripheral edema. Lungs: Clear to auscultation, no use of accessory muscles, no crackles or wheezes. Skin: No jaundice. No rashes. Abdomen: Normal bowel sounds, abdomen soft and nontender. Genito Urinary: Genital exam not performed since complaints not related. Rectal: Rectal exam not performed since no symptoms indicated blood loss. Extremities: No cyanosis or clubbing. Musculoskeletal: 5/5 strength, normal range of motion, no swollen or erythematous joints. Neurological: Moves all 4 extremities. No myoclonus. Discharge Data Studies Completed and Pending Completed Studies During Hospitalization Category Date Time Status CT abdomen pelvis w con* [id number] Stat Cat Scan 07/11/22 16:51 Completed US abdomen limited [id number] Routine Ultrasound 07/12/22 09:33 Completed US gall bladder [id number] Stat Ultrasound 07/11/22 20:32 Completed Pending at discharge Category Date Time Status ISHAN Profile Rheumatology Stat Lab 07/12/22 09:57 Results Bartonella DNA PCR Routine Lab 07/12/22 15:34 Results Bartonella Henselae AB w/Titer Routine Lab 07/12/22 15:34 Results Blood Culture Stat Lab 07/12/22 10:01 Results Clostridioides Difficile PCR Routine Lab 07/12/22 09:35 Ordered Enteric Bacterial Panel by PCR Routine Lab 07/12/22 09:35 Ordered Enteric Parasite Panel by PCR Routine Lab 07/12/22 09:35 Ordered Immunochemical Fecal OCB Routine Lab 07/12/22 09:35 Ordered Lactoferrin Routine Lab 07/12/22 09:35 Ordered Stool Culture, Bacterial [Enteric Bacterial Panel by Lab 07/11/22 23:30 Uncollected PCR] Routine Stool WBC [Lactoferrin] Routine Lab 07/11/22 23:30 Uncollected Tick Panel Routine Lab 07/11/22 21:25 Results stool Ova and Parasite [Enteric Parasite Panel by PCR] Lab 07/11/22 23:30 Uncollected Routine Radiology Impressions Abdomen/Pelvis CT 07/11/22 16:51 IMPRESSION: 1. Prominent fluid in the small bowel without dilation suggestive of an enteritis. 2. Emphysematous changes suspected. 3. Spleen enlarged at 13 cm. Gallbladder Ultrasound 07/11/22 20:32 IMPRESSION: No acute findings. Abdomen Ultrasound 07/12/22 09:33 IMPRESSION: Mild severity splenomegaly. Laboratory Results WBC 4.3 10^3/uL (4.0-10.0) 07/16/22 01:47 RBC 4.39 10^6/uL (4.1-5.3) 07/16/22 01:47 Hgb 13.2 g/dL (11.7-16.6) 07/16/22 01:47 Hct 38.3 % (42.0-52.0) L 07/16/22 01:47 MCV 87.2 fl (80-94) 07/16/22 01:47 MCH 30.1 pg (28.0-34.0) 07/16/22 01:47 MCHC 34.5 g/dL (30.0-36.0) 07/16/22 01:47 RDW 12.0 % (12.1-15.1) L 07/16/22 01:47 Plt Count 137 10^3/cmm (130-400) 07/16/22 01:47 MPV 11.1 fL (7.4-10.4) H 07/16/22 01:47 Neut % (Auto) 33.1 % 07/16/22 01:47 Lymph % (Auto) 50.1 % 07/16/22 01:47 [place] % (Auto) 13.8 % 07/16/22 01:47 Eos % (Auto) 0.9 % 07/16/22 01:47 Baso % (Auto) 0.5 % 07/16/22 01:47 Neut # (Auto) 1.42 10^3/uL (1.8-7.7) L 07/16/22 01:47 Lymph # (Auto) 2.2 10^3/uL (0.8-4.8) 07/16/22 01:47 [place] # (Auto) 0.6 10^3/uL (0.2-0.9) 07/16/22 01:47 Eos # (Auto) 0.0 10^3/uL (0.0-0.8) 07/16/22 01:47 Baso # (Auto) 0.0 10^3/uL (0.0-0.1) 07/16/22 01:47 Nucleated RBC % (auto) 0 % 07/16/22 01:47 Total Counted 100 (0-100) 07/14/22 04:03 Atypical Lymphs % 4.0 % (0-5) 07/14/22 04:03 Absolute Neutrophils 2.7 10^3/cmm (1.4-6.5) 07/14/22 04:03 Segmented Neutrophils 53 % 07/14/22 04:03 Abs Segm Neuts (Man) 2.7 10/cmm (1.6-7.1) 07/14/22 04:03 Band Neutrophils 1.0 % 07/14/22 04:03 Abs Band Neuts (Man) 0.1 10^3/cmm (0.0-1.2) 07/14/22 04:03 Absolute Lymphocytes 2.0 10^3/cmm (1.2-3.4) 07/14/22 04:03 Lymphocytes (Manual) 35 % 07/14/22 04:03 Monocytes (Manual) 6.0 % 07/14/22 04:03 Absolute Monocytes 0.3 10^3/cmm (0.1-0.6) 07/14/22 04:03 Eosinophils (Manual) 1 % 07/14/22 04:03 Absolute Eosinophils 0.0 10^3/cmm (0.0-0.7) 07/14/22 04:03 Basophils (Manual) 0.0 % 07/14/22 04:03 Absolute Basophils 0.0 10^3/cmm (0.0-0.2) 07/14/22 04:03 Metamyelocytes 0.0 % 07/14/22 04:03 Myelocytes 0.0 % 07/14/22 04:03 Nucleated RBCs # 0.0 /100WBC 07/16/22 01:47 Platelet Estimate Decreased (Normal) 07/14/22 04:03 Giant Platelets Trace 07/12/22 04:16 ESR 5 mm/hr (0-10) 07/12/22 09:57 PT 13.70 SECONDS (12.1-14.9) 07/12/22 09:57 INR 1.02 (0.8-1.2) 07/12/22 09:57 APTT 31.9 SECONDS (23.9-36.7) 07/12/22 09:57 Fibrinogen 421 mg/dL (174-498) 07/12/22 09:57 Fibrin Degrad Products Neg, <10 ug/mL (NEG) 07/12/22 09:57 D-Dimer 1.80 ug/mIFEU (0-0.59) H 07/12/22 09:57 Sodium 136 mmol/L (136-145) 07/15/22 04:11 Potassium 3.4 mmol/L (3.5-5.1) L 07/15/22 04:11 Chloride 100 mmol/L (98-107) 07/15/22 04:11 Carbon Dioxide 29 mmol/L (22-29) 07/15/22 04:11 Anion Gap 10.4 (5-19) 07/15/22 04:11 BUN 9 mg/dL (6-20) 07/15/22 04:11 Creatinine 0.7 mg/dL (0.7-1.2) 07/15/22 04:11 GFR Calculation 117.1 mL/min (90-130) 07/15/22 04:11 Glucose 116 mg/dL (65-115) H 07/15/22 04:11 POC Glucose 162 mg/dL (70-110) H 07/16/22 07:02 Estimat Average Glucose 206 07/11/22 19:05 Hemoglobin A1c 8.8 % (4.0-6.0) H 07/11/22 19:05 Calculated Osmolality 282 mOsm/kg (285-295) L 07/15/22 04:11 Calcium 8.6 mg/dL (8.5-10.5) 07/15/22 04:11 Phosphorus 4.2 mg/dL (2.5-4.5) 07/15/22 04:11 Magnesium 1.9 mg/dL (1.7-2.3) 07/15/22 04:11 Total Bilirubin 0.4 mg/dL (0.15-1.2) 07/15/22 04:11 AST 59 U/L (0-40) H 07/15/22 04:11 ALT 130 U/L (0-41) H 07/15/22 04:11 Alkaline Phosphatase 393 U/L (40-130) H 07/15/22 04:11 C-Reactive Protein 22.4 mg/L (0.0-4.9) H 07/14/22 04:03 Total Protein 5.1 g/dL (6.6-8.7) L 07/15/22 04:11 Albumin 2.8 g/dL (3.5-5.2) L 07/15/22 04:11 Globulin 2.3 g/dL (1.3-4.6) 07/15/22 04:11 Lipase 165 U/L (13-60) H 07/11/22 19:05 Procalcitonin 0.48 ng/mL (0-0.5) 07/14/22 04:03 TSH 1.74 uIU/mL (0.27-4.20) 07/11/22 19:05 Urine Color Dark yellow (Yellow) 07/11/22 15:55 Urine Appearance Clear (CLEAR) 07/11/22 15:55 Urine pH 6 (5-7) 07/11/22 15:55 Ur Specific [place] 1.015 (1.005-1.030) 07/11/22 15:55 Urine Protein 1+ (Negative) H 07/11/22 15:55 Urine Glucose (UA) 4+ (Normal) H 07/11/22 15:55 Urine Ketones 3+ (Negative) H 07/11/22 15:55 Urine Blood Trace (Negative) H 07/11/22 15:55 Urine Nitrate Negative (Negative) 07/11/22 15:55 Urine Bilirubin 1+ (Negative) H 07/11/22 15:55 Urine Urobilinogen 8 mg/dL (Negative) H 07/11/22 15:55 Ur Leukocyte Esterase Negative (Negative) 07/11/22 15:55 Urine RBC 5-10 /hpf (0-2) H 07/11/22 15:55 Urine WBC 5-10 /hpf (0-5) H 07/11/22 15:55 Ur Squamous Epith Cells 0-4 /hpf (0-5) H 07/11/22 15:55 Amorphous Sediment 1+ /hpf 07/11/22 15:55 Urine Bacteria Trace /hpf (NONE) 07/11/22 15:55 JACOBY-1 Antibody <1.0 neg AI (<1.0 NEG) 07/12/22 09:57 SS-A Antibody <1.0 neg AI (<1.0 NEG) 07/12/22 09:57 SS-B Antibody <1.0 neg AI (<1.0 NEG) 07/12/22 09:57 Sm (Jansen) Antibody <1.0 neg AI (<1.0 NEG) 07/12/22 09:57 CLINICAL TRAINER Antibody <1.0 neg AI (<1.0 NEG) 07/12/22 09:57 Scl-70 Antibody <1.0 neg AI (<1.0 NEG) 07/12/22 09:57 Centromere B Antibody <1.0 neg AI (<1.0 NEG) 07/12/22 09:57 Complement C3c 148 mg/dL (82-185) 07/12/22 09:57 Complement C4c 22 mg/dL (15-53) 07/12/22 09:57 CH50 Classical Pathway >60 U/mL (31-60) H 07/12/22 09:57 RPR Nonreactive (Nonreactive) 07/12/22 15:34 Bartonella Source TNP 07/12/22 15:34 Bartonella henselae DNA Not Reportable 07/12/22 15:34 Bartonella [place] PCR Not Reportable 07/12/22 15:34 Lyme Ab (Western Blot) <0.90 index 07/11/22 21:25 Coronavirus 229E (PCR) Not detected (NOT DETECT) 07/11/22 21:25 CMV IgG Ab >10.00 U/mL H 07/12/22 09:57 CMV IgM Ab <30.00 AU/mL 07/12/22 09:57 EBV IgG Ab <18.00 U/mL 07/12/22 09:57 EBV IgM Ab <36.00 U/mL 07/12/22 09:57 EBV Capsid Ag IgG, IgM <36.00 U/mL 07/12/22 09:57 EBV Nuclear Antigen 262.00 U/mL H 07/12/22 09:57 EBV Interpretation See note 07/12/22 09:57 Hepatitis A IgM Ab Non-reactive (Nonreactive) 07/11/22 20:18 Hep Bs Antigen Non-reactive (Nonreactive) 07/11/22 20:18 Hep Bs Antibody 3.5 (11.5-1000) L 07/11/22 20:18 Hep B Core Total Ab Non-reactive (Nonreactive) 07/11/22 20:18 Hepatitis C Antibody Non-reactive (Nonreactive) 07/11/22 20:18 Monoscreen Negative (Negative) 07/12/22 09:57 HIV 1&2 Ab & HIV 1 Ag Non-reactive (Non-Reactiv) 07/12/22 09:57 HIV 1&2 Antibody Non-reactive (Non-Reactiv) 07/12/22 09:57 Influenza Type A Ag negative (Negative) 07/11/22 20:24 Influenza Type B Ag negative (Negative) 07/11/22 20:24 SARS-CoV-2 (PCR) Not detected (NOT DETECT) 07/11/22 21:25 SARS-CoV-2 Ag (Rapid) negative (Negative) 07/11/22 20:24 Procedures Performed None Vitals Last Vital Signs Temp 97.6 F 07/16/22 08:00 Pulse 66 07/16/22 08:00 Resp 17 07/16/22 08:00 BP 148/83 07/16/22 08:00 Pulse Ox 98 07/16/22 08:00 O2 Del Method 07/16/22 03:54 Discharge Plan Discharge Patient Disposition: Home Condition: Stable Prescriptions: New azithromycin 500 mg tablet 500 mg PO DAILY 7 Days Qty: 7 0RF cefdinir 300 mg capsule 300 mg PO BID 7 Days Qty: 14 0RF Continued (DME) pen needle, diabetic [Comfort EZ Pen [place]] 32 gauge x 5/32 needle See Rx Instructions .Route Qty: 100 3RF Rx Instructions: once daily atorvastatin 40 mg tablet 40 mg PO DAILY Qty: 90 1RF glimepiride 2 mg tablet 2 mg PO DAILY Qty: 90 1RF insulin detemir U-100 100 unit/mL (3 mL) insulin pen 50 unit SUBCUT DAILY 30 Days Qty: 15 5RF loratadine 10 mg capsule 10 mg PO DAILY Qty: 90 1RF metformin 1,000 mg tablet 1,000 mg PO BID 90 Days Qty: 180 2RF lisinopril 5 mg tablet 5 mg PO DAILY Qty: 90 1RF celecoxib 200 mg capsule 200 mg PO BID 30 Days Qty: 60 1RF ondansetron 4 mg tablet,disintegrating 4 mg PO Q6H PRN (Reason: nausea and vomiting) Qty: 14 0RF Vitamin D2 1,250 mcg (50,000 unit) Capsule 1,250 mcg PO DAILY Discharge Orders: Discharge Order (Routine); Ordered 07/16/22 Ordered By: Mohinder Terrazas Referrals: Jonny Hopkins FNP-C [Nurse Practitioner] - 07/22/22 3:20 pm (Patient reports that he uses the [facility] and usually just sees who is available for PCP) Discharge Diet: Advance as tolerated and Diabetic Discharge Activity: Resume usual activity and Increase activity as tolerated Patient Instructions: Azithromycin (By mouth), Cefdinir (By mouth), Colitis (ED), Opioid Safety Activity Restrictions/Additional Instructions: 1. Take medications as prescribed. 2. Follow up with PCP 3. Advance diet to previous diet as tolerated. Discharge Attestations Time Spent in Discharge Care*: greater than 30 min Quality Metrics Clinical Quality Measures [ No reported AMI, CVA or VTE this stay] Coding Level of Care Code Acute Chg FW DC note Diagnoses Colitis K52.9 Hepatosplenomegaly R16.2 Thrombocytopenia D69.6 Leukopenia D72.819 Transaminitis R74.01 Constipation K59.00 Fatigue R53.83 Fatigue type: unspecified Debility R53.81 Hyperlipidemia associated with type 2 diabetes mellitus E11.69; E78.5 DM II (diabetes mellitus, type II), controlled E11.9 Diabetes mellitus computer terminal operator insulin use: without custodial use Diabetes mellitus complication status: without complication Hypokalemia E87.6 Hypophosphatemia E83.39
[2022-07-16 10:31] VITALS: BP 148/83; PULSE 66; RESP 17; TEMP 36.4; O2SAT 98
[2022-07-16 10:56] LABS: Glucose Point of Care 332 mg/dL (70-110)
[2022-07-16 12:58] LABS: ANA SCREEN, IFA POSITIVE (NEGATIVE); ANA TITER 1:40 titer; Anti-Nuclear AB Pattern #2 Nuclear, Speckled; Anti-Nuclear Antibody Titer #2 1:40 titer
[2022-07-16 17:35] LABS: THYROID PEROXIDASE ANTIBODIES 1 IU/mL (<9)
[2022-07-16 18:44] LABS: Bartonella Henselae IgG AB Negative
[2022-07-17 15:29] LABS: DNA AB (DS) CRITHIDIA,IFA NEGATIVE (NEGATIVE)
[2022-07-17 16:39] LABS: E. Chaffeensis AB IGG <1:64; E. Chaffeensis AB IGM <1:20
[2022-07-18 16:04] LABS: RMSF IGG DETECTED; RMSF IGM NOT DETECTED
== END 2022-07-16 14:04 | disposition home or self-care (01) | DRG 392 ==
LOC: ER 21:41 → MEDSURG 21:42
PROVIDERS: Family Medicine; Admitting Provider Internal Medicine; Emergency Provider Emergency Medicine; PCP Nurse Practitioner Family; Visit Provider Internal Medicine
DX: K52.9 Noninfective gastroenteritis and colitis, unspecified (principal); A28.1 Cat-scratch disease; R16.0 Hepatomegaly, not elsewhere classified; D69.6 Thrombocytopenia, unspecified; K59.00 Constipation, unspecified; E11.69 Type 2 diabetes mellitus with other specified complication; E78.49 Other hyperlipidemia; E87.6 Hypokalemia; E83.39 Other disorders of phosphorus metabolism; Z79.84 Long term (current) use of oral hypoglycemic drugs; Z79.4 Long term (current) use of insulin; Z80.0 Family history of malignant neoplasm of digestive organs; Z88.0 Allergy status to penicillin; Z87.891 Personal history of nicotine dependence
CPT/HCPCS: 36415; 36416; 74177; 76705; 80053; 80503; 81001; 82962; 83036; 83690; 83735; 84100; 84145; 84443; 85007; 85025; 85362; 85378; 85384; 85610; 85651; 85730; 86140; 86160; 86162; 86235; 86255; 86308; 86376; 86592; 86611; 86618; 86664; 86665; 86666; 86705; 86706; 86709; 86757; 86803; 87040; 87070; 87086; 87205; 87340; 87426; 87491; 87591; 87635; 87801; 87804; 87806; 96365; 96372; 99285; G0378; J0456; J0696; J1815; J2270; J2405; J3490; J7030; J7050; Q0144; Q9967

== ENCOUNTER → 2022-11-10 10:24 | Outpatient (BNVA) | payer MEDICAID, SELFPAY | PROVIDERS: PCP Nurse Practitioner Family; Visit Provider Nurse Practitioner Family | DX: E11.9 Type 2 diabetes mellitus without complications (principal) | CPT/HCPCS: 80053; 80061; 83036; 85025 ==